=== PATIENT | male | born 1990 | race Caucasian/White ===

== ENCOUNTER 2018-03-04 02:38 | Emergency (ER) | payer SELFPAY ==
[2018-03-04] MEDS ORDERED: NORMAL SALINE 1000 ML 1,000 ML IV ONE (03:28)
[2018-03-04 04:23] LABS: ABSOLUTE BASOPHILS # (AUTO) 0.1 10^3/uL (0.0-0.2); ABSOLUTE EOSINOPHILS # (AUTO) 0.1 10^3/uL (0.0-0.6); ABSOLUTE LYMPHOCYTES (AUTO) 3.3 10^3/uL (0.5-4.7); ABSOLUTE MONOCYTES (AUTO) 1.2 10^3/uL (0.1-1.4); ABSOLUTE NEUT (AUTO) 9.4 10^3/uL (1.7-8.2); BASOPHILS % (AUTO) 0.4 % (0-2); EOSINOPHILS % (AUTO) 0.6 % (0-6); HEMATOCRIT 46.5 % (37.9-51.0); LYMPHOCYTES % (AUTO) 23.7 % (13-45); MEAN CORPUSCULAR HEMOGLOBIN 29.8 pg (27.0-33.4); MEAN CORPUSCULAR HGB CONC 34.5 g/dL (32.0-36.0); MEAN CORPUSCULAR VOLUME 86 fl (80-97); MONOCYTES % (AUTO) 8.4 % (3-13); PLATELET COUNT 307 10^3/uL (150-450); RED BLOOD COUNT 5.39 10^6/uL (4.35-5.55); RED CELL DISTRIBUTION WIDTH 13.5 % (11.5-14.0); SEGMENTED NEUTROPHILS % (AUTO) 66.9 % (42-78); TOTAL CELLS COUNTED % (AUTO) 100 %
[2018-03-04 04:37] LABS: ALANINE AMINOTRANSFERASE 25 U/L (21-72); ALBUMIN 5.2 g/dL (3.5-5.0); ALKALINE PHOSPHATASE 95 U/L (38-126); ANION GAP 19 (5-19); ASPARTATE AMINO TRANSFERASE 19 U/L (17-59); BILIRUBIN,DIRECT 0.4 mg/dL (0.0-0.4); BILIRUBIN,TOTAL 0.6 mg/dL (0.2-1.3); BLOOD UREA NITROGEN 15 mg/dL (7-20); CALCIUM 10.2 mg/dL (8.4-10.2); CARBON DIOXIDE 27 mmol/L (22-30); CHLORIDE 97 mmol/L (98-107); CREATINE KINASE 183 U/L (55-170); GLUCOSE 92 mg/dL (75-110); POTASSIUM 3.9 mmol/L (3.6-5.0); SODIUM 143.1 mmol/L (137-145); TOTAL PROTEIN 9.3 g/dL (6.3-8.2)
[2018-03-04 04:49] LABS: TROPONIN I < 0.012 ng/mL
--- NOTE | 2018-03-04 05:27 | ER Document Report ---
ED General - General Chief Complaint: Chest Pain Stated Complaint: CHEST PRESSURE Time Seen by Provider: 03/04/18 03:20 Information source: Patient Notes: Patient is an otherwise healthy 27-year-old male who reports that he has had chest pressure since 11 AM while he was working outside yesterday. Patient reports he has vomited 2-3 times. Patient denies any significant past medical history and does not take any medications daily. Patient denies any radiation of the pain, describes this pain as a pressure to the left side of his chest. Patient currently reports that there is no chest pain at this time however he was concerned he was having a heart attack. TRAVEL OUTSIDE OF THE [place] IN LAST 30 DAYS: No Past Medical History - General Information source: Patient - Social History Smoking Status: Never Smoker Frequency of alcohol use: None Drug Abuse: None Lives with: Family Family History: Reviewed & Not Pertinent Patient has suicidal ideation: No Patient has homicidal ideation: No - Medical History Medical History: Negative Renal/ Medical History: Denies: Hx Peritoneal Dialysis Surgical Hx: Negative - Immunizations Hx Diphtheria, Pertussis, Tetanus Vaccination: Yes Review of Systems - Review of Systems Constitutional: No symptoms reported EENT: No symptoms reported Cardiovascular: See HPI Respiratory: No symptoms reported Gastrointestinal: No symptoms reported Genitourinary: No symptoms reported Male Genitourinary: No symptoms reported Musculoskeletal: No symptoms reported Skin: No symptoms reported Hematologic/Lymphatic: No symptoms reported Neurological/Psychological: No symptoms reported Physical Exam - Vital signs Vitals: Temp Pulse Resp BP Pulse Ox 98.9 F 94 18 143/84 H 98 03/04/18 02:41 03/04/18 02:41 03/04/18 02:41 03/04/18 02:41 03/04/18 02:41 - Notes Notes: PHYSICAL EXAMINATION: GENERAL: Well-appearing, well-nourished and in no acute distress. HEAD: Atraumatic, normocephalic. EYES: Pupils equal round and reactive to light, extraocular movements intact, sclera anicteric, conjunctiva are normal. ENT: Nares patent, oropharynx clear without exudates. Moist mucous membranes. NECK: Normal range of motion, supple without lymphadenopathy LUNGS: Breath sounds clear to auscultation bilaterally and equal. No wheezes rales or rhonchi. HEART: Regular rate and rhythm without murmurs ABDOMEN: Soft, nontender, nondistended abdomen. No guarding, no rebound. No masses appreciated. Musculoskeletal: Normal range of motion, no pitting or edema. No cyanosis. NEUROLOGICAL: Cranial nerves grossly intact. Normal speech, normal gait. Normal sensory, motor exams PSYCH: Normal mood, normal affect. SKIN: Warm, Dry, normal turgor, no rashes or lesions noted. Course - Re-evaluation Re-evalutation: Patient is an otherwise healthy 27-year-old male who presents with chief complaint of chest pain. Patient reports that this started yesterday morning while he was at work. Patient reports that he finished work all day but then decided to come get checked out tonight because he began vomiting. Patient reports that the chest pain is now resolved however patient reports that he is concerned he has had any heart attack. Very unlikely that this is cardiac in nature. All lab results and EKG are unremarkable. Patient remains chest pain-free, has not vomited, and vital signs are all stable. Patient will be discharged home in stable condition. - Vital Signs Vital signs: Temp Pulse Resp BP Pulse Ox 98.6 F 94 16 131/88 H 100 03/04/18 05:01 03/04/18 02:41 03/04/18 05:01 03/04/18 05:01 03/04/18 05:01 - Laboratory Result Diagrams: 03/04/18 04:10 03/04/18 04:10 Laboratory results interpreted by me: 03/04/18 03/04/18 04:10 04:10 WBC 14.0 H Absolute Neutrophils 9.4 H Chloride 97 L Creatine Kinase 183 H Total Protein 9.3 H Albumin 5.2 H Discharge - Discharge Clinical Impression: Chest pain Qualifiers: Chest pain type: unspecified Qualified Code(s): R07.9 - Chest pain, unspecified Condition: Stable Disposition: HOME, SELF-CARE Additional Instructions: Chest Pain of Unclear Cause The exact cause of your chest pain isn't clear. Fortunately, there is no evidence of a dangerous medical condition. Further testing may be required to find the source of the pain. Most often, we find that this pain is coming from the chest wall -- the muscles or rib joints in the chest. But chest pain can come from the lung and lung lining, the esophagus, the heart valves or heart lining, and even the stomach or gallbladder. Rest. Eat lightly until the pain is gone. We may prescribe medicine for pain and inflammation. You should call the physician immediately if the pain radiates to the shoulder, jaw or arms; if you start to run a fever or develop a cough; or if you develop shortness of breath, or other new or alarming symptoms. Referrals: COLLEEN DOWD MD [COMMUNITY BASED STAFF] - Follow up as needed
[2018-03-04 05:33] VITALS: BP 131/88
--- NOTE | 2018-03-04 19:36 | EKG REPORT ---
SEVERITY:- NORMAL ECG - SINUS RHYTHM : Confirmed by: Thelma Jama MD 04-Mar-2018 19:35:36
== END 2018-03-04 05:30 | disposition home or self-care (01) ==
LOC: ER 02:38
DX: R07.9 Chest pain, unspecified (principal)
CPT/HCPCS: 36415; 80053; 82550; 82553; 84484; 85025; 93005; 93010; 99285

== ENCOUNTER 2018-11-22 23:22 | Emergency (ER) | payer SELFPAY ==
--- NOTE | 2018-11-23 00:14 | RADIOLOGY REPORT (SQ) ---
EXAM DESCRIPTION: XR KNEE 4 OR MORE VIEWS COMPLETED DATE/TME: 11/22/2018 00:00 CLINICAL HISTORY: 28 years, Male, injury COMPARISON: None. FINDINGS: No fracture or dislocation. Soft tissues are unremarkable. IMPRESSION: No acute abnormality.
[2018-11-23] MEDS ORDERED: IBUPROFEN 600 MG TABLET PO ONE (01:34)
[2018-11-23] MEDS ORDERED: ACETAMINOPHEN 325 MG TABLET PO ONE (01:35)
--- NOTE | 2018-11-23 01:41 | ER Document Report ---
HPI - HPI Patient complains to provider of: L knee injury Time Seen by Provider: 11/23/18 01:23 Pain Level: 4 Context: 28-year-old healthy male presents the emergency department after. He was attempting to put his shoe on his left foot and when he raised his knee up and hit the underside of a table at full force. He states it is the worst pain he has ever felt. Said he initially felt a lightening bolt type of shock and then severe pain. He was unable to bear weight on it and it causes extreme pain to move it at all. He is currently laying in a position of comfort on the stretcher. He says there is a small dilan but there is no obvious swelling. Denies any fluid collection. Unable to bear weight on it. No other complaints - MUSCULOSKELETAL Musculoskeletal: REPORTS: Extremity pain - lt knee injury Past Medical History - Social History Smoking Status: Current Every Day Smoker Chew tobacco use (# tins/day): No Frequency of alcohol use: None Drug Abuse: Marijuana Family History: Reviewed & Not Pertinent Patient has suicidal ideation: No Patient has homicidal ideation: No Renal/ Medical History: Denies: Hx Peritoneal Dialysis Past Surgical History: Reports: Hx Appendectomy - Immunizations Hx Diphtheria, Pertussis, Tetanus Vaccination: Yes Vertical Provider Document - CONSTITUTIONAL Notes: PHYSICAL EXAMINATION: Reviewed vital signs and charting by RN GENERAL: Alert, interacts well. No acute distress. HEAD: Normocephalic, atraumatic. EYES: Pupils equal and round. Extraocular movements intact. ENT: Oral mucosa moist, tongue midline. EXTREMITIES: Limited range of motion left lower extremity, no edema, small dilan anterior lateral aspect just superior to the patella. No cyanosis. Normal distal neurovascular exam NEUROLOGIC: Oriented and appropriate. Normal speech. PSYCH: Normal affect, normal mood. SKIN: Warm, dry, normal turgor. No rashes or lesions noted. - INFECTION CONTROL TRAVEL OUTSIDE OF THE [place] IN LAST 30 DAYS: No Course - Re-evaluation Re-evalutation: 11/23/18 01:42 Overall well-appearing. X-ray negative for dislocation or fracture. Patient is able to move his knee it seems without any effort. When I palpated in the superior and lateral of the patella there was a rope like abnormality that could be a tendon that caused acute pain and spasm. Patient will be placed in an Kirk wrap and given crutches. I told him to take Motrin and Tylenol, and employRICE treatment. I told him if his symptoms do not improve at all by the end of the week he should follow-up with orthopedics. - Vital Signs Vital signs: Temp Pulse Resp BP Pulse Ox 99.3 F 115 H 1 L 137/83 H 97 11/22/18 23:47 11/22/18 23:47 11/23/18 00:25 11/22/18 23:47 11/22/18 23:47 Discharge - Discharge Clinical Impression: Left knee injury Qualifiers: Encounter type: initial encounter Qualified Code(s): S89.92XA - Unspecified injury of left lower leg, initial encounter Condition: Good Disposition: HOME, SELF-CARE Instructions: Use of Crutches ([facility]), Ice & Elevation ([facility]) Additional Instructions: You are seen in the emergency department this evening for knee injury. X-rays were negative for any fracture or dislocation. The location where you hit your knee is right where you are iliotibial tract or IT band courses down towards your kneecap. You could have caused an injury to that or to 1 of the broad ligaments from your quadriceps muscles which could explain why your spasming. Please take Motrin 600 mg every 6 hours [id number] with food or milk for the next 5-7 days, take Tylenol 1000 mg every 6 hours as needed for pain, ice your knee 20 minutes at a time every 2 hours. And elevate your knee. You can t lobito the Kirk wrap off as needed for showering but it will help with pain and inflammation as well. If you are unable to move your leg at all, you develop redness or severe swelling in the area, severe pain out of proportion to movement fevers, please immediately return to the emergency department for reevaluation. Referrals: RAMOS SALDANA MD [ACTIVE STAFF] - Follow up as needed
[2018-11-23 01:54] VITALS: BP 132/79
== END 2018-11-23 01:57 | disposition home or self-care (01) ==
LOC: ER 23:22
DX: S89.92XA Unspecified injury of left lower leg, initial encounter (principal); X58.XXXA Exposure to other specified factors, initial encounter; F17.200 Nicotine dependence, unspecified, uncomplicated
CPT/HCPCS: 99283

== ENCOUNTER 2019-08-01 13:34 | Emergency (ER) | payer SELFPAY ==
[2019-08-01 14:00] VITALS: BP 128/76
[2019-08-01] MEDS ORDERED: DIPH/PERTUSS(ACELL)/TETANUS VAC/PF 0.5 ML SYR (>=10YO) IM ONE (14:22)
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
== END 2019-08-01 14:30 | disposition home or self-care (01) ==
LOC: ER 13:34
DX: S71.111D Laceration without foreign body, right thigh, subsequent encounter (principal); S51.812D Laceration without foreign body of left forearm, subsequent encounter; S71.112D Laceration without foreign body, left thigh, subsequent encounter; X99.9XXD Assault by unspecified sharp object, subsequent encounter
CPT/HCPCS: 90471; 90715; 99281